=== PATIENT | male | born 2000 | race Caucasian/White ===

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

== ENCOUNTER 2022-05-16 23:51 | Emergency (ER) | payer BC, OTHER ==
[~2022-05-16] VITALS: Ht 177.8 cm; Wt 70.3 kg
[~2022-05-16 23:51] MED LIST: CEPH500C2 PO; SULF15DR6 LEFTEYE
--- NOTE | 2022-05-17 00:05 | NUR ---
pt in room 4b states he has palpitations, he states he may have low magnessium. ekg performed and placed on the residential monitor.
--- NOTE | 2022-05-17 00:42 | NUR ---
Dr. Beckham at bedside for MSE.
[2022-05-17 01:12] LABS: HEMATOCRIT 46.2 % (36.7-47.1); MEAN CORPUSCULAR HEMOGLOBIN 31.3 uug (23.8-33.4); MEAN CORPUSCULAR VOLUME 89.6 fL (73.0-96.2); PLATELET COUNT (AUTO) 178 K/uL (152-348)
[2022-05-17 01:19] LABS: CARBON DIOXIDE 32 mmol/L (21-32); CHLORIDE 106 mmol/L (98-107); CREATININE 1.2 mg/dL (0.6-1.3); GLUCOSE 73 mg/dL (74-106); POTASSIUM 4.3 mmol/L (3.5-5.1); UREA NITROGEN, BLOOD 18 mg/dL (7-18)
[2022-05-17 03:23] VITALS: BP 110/60
== END 2022-05-17 03:23 | disposition home or self-care (01) ==
LOC: ER 23:56
DX: R00.2 Palpitations (principal)
CPT/HCPCS: 36415; 83735; 84484; 85025; A4663

== ENCOUNTER 2023-07-27 02:35 | Emergency (ER) | payer BC, OTHER ==
[~2023-07-27] VITALS: Ht 177.8 cm; Wt 68.0 kg
[2023-07-27] MEDS ORDERED: AMOX500T2 PO (04:08)
[2023-07-27] MEDS ORDERED: predniSONE 50 MG TABLET ONE (04:09)
[2023-07-27] MEDS ORDERED: AMOXicillin 250 MG CAPSULE ONE (04:09)
[2023-07-27] MEDS ORDERED: AMOXicillin 250 MG CAPSULE PO ONE (04:15)
[2023-07-27] MEDS ORDERED: predniSONE 50 MG TABLET PO ONE (04:15)
[2023-07-27 04:17] VITALS: BP 110/72; TEMP 97.5; O2SAT 99
== END 2023-07-27 04:18 | disposition home or self-care (01) ==
LOC: ER 02:38
DX: J02.9 Acute pharyngitis, unspecified (principal); R11.0 Nausea; Z79.2 Long term (current) use of antibiotics; Z79.899 Other long term (current) drug therapy
CPT/HCPCS: 99283; 86403; J7512; A4663